=== PATIENT | male | born 1960 | race Caucasian/White ===

== ENCOUNTER 2018-01-20 09:38 | Emergency (ER) | payer BC ==
[~2018-01-20] VITALS: Ht 162.6 cm; Wt 70.0 kg
[~2018-01-20 09:38] MED LIST: AMOXICILLIN/CL875 MG OR; AMOXICILLIN500 MG PO; ASPIRIN81 MG PO; BABY ASPIRIN81 MG OR; BACTRIM DS1 TAB PO; BENADRYL 50MG C50 MG OR; BENADRYL1 CRE EX; BENADRYL25 MG OR; CIPROFLOXACN500 MG OR; FLEXERIL OR; KETOCONAZOLE2 % EX; LORTAB 1010 MG PO; NITROSTAT0.4 MG SL; NO MEDS; SM IBUPROFEN200 M1 OR; TRIMOX500 MG PO; ULTRAM50 MG OR
[2018-01-20] MEDS ORDERED: ASPERCREME LIDOCA41 TOP (10:10)
[2018-01-20] MEDS ORDERED: MOTRIN400 MG PO (10:11)
[2018-01-20 12:40] VITALS: BP 139/74
== END 2018-01-20 12:40 | disposition home or self-care (01) | DRG 563 ==
LOC: ED 09:38
DX: S46.812A Strain of other muscles, fascia and tendons at shoulder and upper arm level, left arm, initial encounter (principal); M25.512 Pain in left shoulder

== ENCOUNTER 2019-01-10 09:47 | Observation (INO) | payer SELFPAY ==
[~2019-01-10] VITALS: Ht 162.6 cm; Wt 56.0 kg
[~2019-01-10 09:47] MED LIST changes: +ASPERCREME LIDOCA41 TOP; +MOTRIN400 MG PO
[2019-01-10 11:08] LABS: HEMATOCRIT 45.1 % (39.0-50.0); HEMOGLOBIN 15.4 g/dl (14.0-18.0); IMMATURE GRANULOCYTES 0.5 % (0.0-5.0); MEAN CORPUSCULAR HGB 31.8 pG CALC (26.0-32.0); MEAN CORPUSCULAR HGB CONC 34.1 g/L CALC (32.0-36.0); NEUT# 14.87 thou/uL (1.82-7.42); RED BLOOD COUNT 4.85 mill/uL (4.70-6.10); RED CELL DISTRI WIDTH 13.2 % (11.5-15.5)
[2019-01-10 11:21] LABS: ANION GAP 13 (6-22 (CALC)); BUN 21 mg/dL (9-20); BUN/CREATININE RATIO 32 (12-20 (CALC)); CARBON DIOXIDE 25 mmol/l (22-30); CHLORIDE 104 mmol/l (95-108); CREATININE 0.7 mg/dL (0.7-1.3); GFR > 60 ML/MIN (>=60 (CALC)); GFR FOR AFR.AMER. > 60 ML/MIN (>=60 (CALC)); POTASSIUM 4.2 mmol/l (3.5-5.1); SODIUM 138 mmol/l (137-146)
[2019-01-10 13:21] VITALS: BP 138/75
[2019-01-10 16:09] VITALS: BP 112/68
[2019-01-10 19:10] VITALS: BP 116/67
[2019-01-11 04:25] VITALS: BP 122/62
[2019-01-11 05:05] LABS: IMMATURE GRANULOCYTES 0.4 % (0.0-5.0); MEAN CELL VOLUME 93.9 fL CALC (80.0-100.0); MEAN CORPUSCULAR HGB 31.9 pG CALC (26.0-32.0); NEUT# 7.41 thou/uL (1.82-7.42); RED BLOOD COUNT 3.76 mill/uL (4.70-6.10); RED CELL DISTRI WIDTH 13.2 % (11.5-15.5)
[2019-01-11 05:07] LABS: HEMATOCRIT 35.3 % (39.0-50.0)
[2019-01-11 05:24] LABS: ALKALINE PHOSPHATASE 76 u/l (38-126); ANION GAP 10 (6-22 (CALC)); BUN 20 mg/dL (9-20); BUN/CREATININE RATIO 34 (12-20 (CALC)); CARBON DIOXIDE 24 mmol/l (22-30); CHLORIDE 106 mmol/l (95-108); CREATININE 0.6 mg/dL (0.7-1.3); GFR > 60 ML/MIN (>=60 (CALC)); GFR FOR AFR.AMER. > 60 ML/MIN (>=60 (CALC)); MAGNESIUM 1.8 mg/dL (1.6-2.3); SGOT/AST 17 u/l (17-59); SODIUM 136 mmol/l (137-146)
[2019-01-11 05:37] LABS: BILIRUBIN, TOTAL 0.9 mg/dL (0.0-1.4)
[2019-01-11 05:38] LABS: ALBUMIN 2.9 g/dL (3.2-5.0); TOTAL PROTEIN 5.3 g/dL (6.3-8.2)
[2019-01-11 08:14] VITALS: BP 108/76
[2019-01-11 15:10] VITALS: BP 129/76
[2019-01-11 18:55] VITALS: BP 135/85
[2019-01-12 04:12] VITALS: BP 112/74
[2019-01-12 05:03] LABS: HEMOGLOBIN 11.9 g/dl (14.0-18.0); IMMATURE GRANULOCYTES 0.4 % (0.0-5.0); MEAN CELL VOLUME 93.3 fL CALC (80.0-100.0); MEAN CORPUSCULAR HGB 31.7 pG CALC (26.0-32.0); NEUT# 6.22 thou/uL (1.82-7.42); RED BLOOD COUNT 3.75 mill/uL (4.70-6.10)
[2019-01-12 05:30] LABS: ALKALINE PHOSPHATASE 84 u/l (38-126); ANION GAP 11 (6-22 (CALC)); BUN 17 mg/dL (9-20); BUN/CREATININE RATIO 25 (12-20 (CALC)); CARBON DIOXIDE 25 mmol/l (22-30); CHLORIDE 106 mmol/l (95-108); CREATININE 0.7 mg/dL (0.7-1.3); GFR > 60 ML/MIN (>=60 (CALC)); GFR FOR AFR.AMER. > 60 ML/MIN (>=60 (CALC)); MAGNESIUM 1.9 mg/dL (1.6-2.3); POTASSIUM 4.1 mmol/l (3.5-5.1); SGOT/AST 26 u/l (17-59); SODIUM 138 mmol/l (137-146); TOTAL PROTEIN 5.5 g/dL (6.3-8.2)
[2019-01-12 05:38] LABS: BILIRUBIN, TOTAL 0.4 mg/dL (0.0-1.4)
[2019-01-12 08:00] VITALS: BP 125/79
[2019-01-12 15:19] VITALS: BP 153/86
[2019-01-12 18:55] VITALS: BP 120/75
[2019-01-13 04:42] VITALS: BP 120/75
[2019-01-13 07:30] VITALS: BP 115/70
[2019-01-13 17:25] VITALS: BP 131/74
[2019-01-13 19:54] VITALS: BP 120/74
[2019-01-14 04:36] VITALS: BP 144/80
[2019-01-14 08:37] VITALS: BP 136/86
[2019-01-14] MEDS ORDERED: VANCOMYCIN1000 MG IV (13:47)
[2019-01-14] MEDS ORDERED: LORTAB5 PO (16:18)
== END 2019-01-14 16:19 | disposition home or self-care (01) | DRG 603 ==
LOC: ED 09:47 → ED-I 11:28 → ED 11:44 → MS2 11:45
PROVIDERS: Family Medicine; ADMIT Internal Medicine Nephrology; ATTEND Internal Medicine Nephrology
PROC: 0SJD3ZZ Inspection of Left Knee Joint, Percutaneous Approach (ICD-10-PCS; principal; 2019-01-10)
PROC: 02HV33Z Insertion of Infusion Device into Superior Vena Cava, Percutaneous Approach (ICD-10-PCS; 2019-01-14)
PROC: B518ZZA Fluoroscopy of Superior Vena Cava, Guidance (ICD-10-PCS; 2019-01-14)
DX: L03.116 Cellulitis of left lower limb (principal); B95.62 Methicillin resistant Staphylococcus aureus infection as the cause of diseases classified elsewhere; F17.210 Nicotine dependence, cigarettes, uncomplicated; Z86.14 Personal history of Methicillin resistant Staphylococcus aureus infection
CPT/HCPCS: G0378; J1650; J3370

== ENCOUNTER 2019-03-29 21:57 | Emergency (ER) | payer SELFPAY ==
[~2019-03-29] VITALS: Ht 162.6 cm; Wt 61.4 kg
[~2019-03-29 21:57] MED LIST changes: +LORTAB5 PO; +VANCOMYCIN1000 MG IV
[2019-03-29 22:40] LABS: URINE BILIRUBIN - DIPSTICK NEGATIVE (NEGATIVE); URINE BLOOD DIPSTICK SMALL (NEGATIVE); URINE COLOR YELLOW; URINE GLUCOSE - DIPSTICK NEGATIVE (NEGATIVE); URINE KETONE NEGATIVE (NEGATIVE); URINE LEUK ESTERASE NEGATIVE (NEGATIVE); URINE NITRITE - DIPSTICK NEGATIVE (Negative); URINE PH 5.5 (4.5-8.0); URINE PROTEIN - DIPSTICK NEGATIVE (NEG-TRACE); URINE UROBILINOGEN - DIPSTICK 0.2 E.U./dL (0.2)
[2019-03-29 22:41] LABS: IMMATURE GRANULOCYTES 0.5 % (0.0-5.0); MEAN CELL VOLUME 92.9 fL CALC (80.0-100.0); MEAN CORPUSCULAR HGB 31.5 pG CALC (26.0-32.0); NEUT# 6.29 thou/uL (1.82-7.42); RED BLOOD COUNT 4.63 mill/uL (4.70-6.10); RED CELL DISTRI WIDTH 13.3 % (11.5-15.5)
[2019-03-29 22:46] LABS: BARBITURATES NEGATIVE (NEGATIVE); COCAINE NEGATIVE (NEGATIVE); METHADONE NEGATIVE (NEGATIVE); OXCYCODONE NEGATIVE (NEGATIVE); TETRAHYDROCANNABIONOL NEGATIVE (NEGATIVE); TRICYLIC ANTIDEPRESSANTS NEGATIVE (NEGATIVE)
[2019-03-29 22:47] LABS: HEMOGLOBIN 14.6 g/dl (14.0-18.0)
[2019-03-29 22:58] LABS: ALKALINE PHOSPHATASE 119 u/l (38-126); BILIRUBIN, TOTAL 0.4 mg/dL (0.0-1.4); BUN 22 mg/dL (9-20); BUN/CREATININE RATIO 26 (12-20 (CALC)); CARBON DIOXIDE 24 mmol/l (22-30); CHLORIDE 110 mmol/l (95-108); CREATININE 0.8 mg/dL (0.7-1.3); GFR > 60 ML/MIN (>=60 (CALC)); GFR FOR AFR.AMER. > 60 ML/MIN (>=60 (CALC)); SGOT/AST 30 u/l (17-59)
[2019-03-29 23:03] LABS: ANION GAP 16 (6-22 (CALC)); SODIUM 146 mmol/l (137-146); TOTAL PROTEIN 8.1 g/dL (6.3-8.2)
[2019-03-29 23:04] LABS: ALBUMIN 4.8 g/dL (3.2-5.0); MAGNESIUM 2.6 mg/dL (1.6-2.3)
[2019-03-29 23:09] LABS: URINE WBC 0-2 WBC/hpf (0-5)
[2019-03-29 23:09] LABS: ETHYL ALCOHOL 337 mg/dl (0-30)
[2019-03-29 23:10] LABS: URINE BACTERIA FEW hpf
[2019-03-30 10:38] VITALS: BP 124/74
== END 2019-03-30 10:38 | disposition home or self-care (01) | DRG 897 ==
LOC: ED 21:57
PROVIDERS: Family Medicine
PROC: 0T9B70Z Drainage of Bladder with Drainage Device, Via Natural or Artificial Opening (ICD-10-PCS; principal; 2019-03-29)
DX: F10.129 Alcohol abuse with intoxication, unspecified (principal); F17.200 Nicotine dependence, unspecified, uncomplicated
CPT/HCPCS: J2060

== ENCOUNTER 2020-10-19 01:46 | Emergency (ER) | payer OTHER ==
[~2020-10-19] VITALS: Ht 162.6 cm; Wt 68.2 kg
[2020-10-19 03:37] VITALS: BP 145/79
== END 2020-10-19 03:37 | DRG 951 ==
LOC: ED 01:46
DX: Z04.41 Encounter for examination and observation following alleged adult rape (principal); I10 Essential (primary) hypertension; F17.200 Nicotine dependence, unspecified, uncomplicated